=== PATIENT | female | born 1975 | race Hispanic/Latino ===

== ENCOUNTER 2019-03-31 23:17 | Emergency (ER) | payer MEDICARE, OTHER ==
[2019-03-31] MEDS ORDERED: KETOROLAC TROMETHAMINE 30MG/ML ONE (23:43)
== END 2019-03-31 23:59 | disposition home or self-care (01) ==
LOC: EDH 23:17
DX: G44.209 Tension-type headache, unspecified, not intractable (principal); I10 Essential (primary) hypertension; E11.9 Type 2 diabetes mellitus without complications; E78.5 Hyperlipidemia, unspecified; Z88.8 Allergy status to other drugs, medicaments and biological substances
CPT/HCPCS: 96372; 99283; J1885

== ENCOUNTER 2019-07-22 06:29 | Emergency (ER) | payer OTHER ==
[2019-07-22] MEDS ORDERED: KETOROLAC TROMETHAMINE 60 MG/2 ML VIAL ONE (07:34)
== END 2019-07-22 07:58 | disposition home or self-care (01) ==
LOC: EDH 06:29
DX: S93.491A Sprain of other ligament of right ankle, initial encounter (principal); E11.9 Type 2 diabetes mellitus without complications; I10 Essential (primary) hypertension; E78.5 Hyperlipidemia, unspecified; Z90.49 Acquired absence of other specified parts of digestive tract; Z90.710 Acquired absence of both cervix and uterus; Z88.9 Allergy status to unspecified drugs, medicaments and biological substances; Z88.3 Allergy status to other anti-infective agents; Z88.8 Allergy status to other drugs, medicaments and biological substances; Y08.89XA Assault by other specified means, initial encounter; Y93.89 Activity, other specified; Y92.89 Other specified places as the place of occurrence of the external cause; Y99.8 Other external cause status
CPT/HCPCS: 73610; 96372; 99283; J1885

== ENCOUNTER 2022-09-24 19:18 | Emergency (ER) | payer OTHER, MEDICARE ==
[~2022-09-24] VITALS: Ht 167.6 cm; Wt 83.5 kg
[2022-09-24] MEDS ORDERED: SEMA3TAB4 PO (19:59)
[2022-09-24] MEDS ORDERED: DAPA10TA PO (19:59)
[2022-09-24] MEDS ORDERED: ROSU40TA21 PO (19:59)
[2022-09-24] MEDS ORDERED: EREN70AU2 SQ (19:59)
[2022-09-24] MEDS ORDERED: ACETAMINOPHEN 500 MG TABLET PO ONE (22:00)
[2022-09-24] MEDS ORDERED: METOCLOPRAMIDE 10 MG/2 ML VIAL IM ONE (22:00)
[2022-09-24] MEDS ORDERED: FLUT16H NASAL (23:33)
[2022-09-24] MEDS ORDERED: AZIT250T9 PO (23:33)
[2022-09-24] MEDS ORDERED: LACT10SO9 PO (23:33)
[2022-09-24] MEDS ORDERED: LORA10TA7 PO (23:33)
[2022-09-24 23:38] VITALS: BP 128/72
== END 2022-09-24 23:42 | disposition home or self-care (01) ==
LOC: EDH 19:18
DX: K59.00 Constipation, unspecified (principal); J01.90 Acute sinusitis, unspecified; F32.A Depression, unspecified; E11.9 Type 2 diabetes mellitus without complications; I10 Essential (primary) hypertension; Z90.710 Acquired absence of both cervix and uterus; Z88.8 Allergy status to other drugs, medicaments and biological substances
CPT/HCPCS: 99283; 74018; 96372; J2765